=== PATIENT | male | born 1975 | race Caucasian/White ===

== ENCOUNTER 2016-08-27 17:33 | Emergency (ER) | payer OTHER ==
[~2016-08-27] VITALS: Ht 172.7 cm; Wt 113.4 kg
[~2016-08-27 17:33] MED LIST: ZOLP10TA PO
[2016-08-27 18:31] LABS: Basophils # (auto) 0 uL; Basophils % (auto) 0.3 % (0.0-2.0); Eosinophils # (auto) 0.1 uL; Eosinophils % (auto) 0.9 % (0.0-7.0); Hematocrit 43.3 % (41.0-53.0); Hemoglobin 14.5 g/dL (13.5-17.5); Lymphocytes # (auto) 2.3 uL; Lymphocytes % (auto) 29.6 % (10.0-50.0); Mean Corpuscular Hemoglobin 28.4 pg (28.0-32.0); Mean Corpuscular Hgb Conc. 33.4 g/dL (32.0-36.0); Mean Platelet Volume 7.7 fL (7.4-10.4); Monocytes # (auto) 0.5 uL; Monocytes % (auto) 6.3 % (0.0-12.0); Neutrophils # (auto) 4.9 uL; Neutrophils % (auto) 62.9 % (37.0-80.0); Platelet Count (auto) 319 10^3/uL (140-450); Red Cell Distribution Width 13.8 % (11.6-16.0); White Blood Cell 7.8 10^3/uL (4.4-10.8)
[2016-08-27 18:44] LABS: Albumin 3.9 g/dL (3.4-5.0); Anion Gap 9 (5-15); Calcium 8.6 mg/dL (8.5-10.1); Carbon Dioxide 23 mmol/L (21-32); Chloride 106 mmol/L (98-107); Glucose 100 mg/dL (74-106); Magnesium 2.3 mg/dL (1.6-2.6); Sodium 138 mmol/L (136-145)
[2016-08-27 18:48] LABS: Alkaline Phosphatase 72 U/L (45-117); Aspartate Aminotransferase 18 U/L (15-37); BUN/Creatinine Ratio 10.9; Bilirubin, Total 0.4 mg/dL (0.2-1.0); Blood Urea Nitrogen 11 mg/dL (7-18); GFR African American 105 mL/min; GFR Non-African American 87 mL/min; Total Protein 7.7 g/dL (6.4-8.2)
[2016-08-27] MEDS ORDERED: SODIUM CHLORIDE 0.9% 1,000 ML IV ONE (19:25)
[2016-08-27] MEDS ORDERED: MORPHINE SULFATE 4 MG/ML SYRG IV ONE (19:30)
[2016-08-27] MEDS ORDERED: ONDANSETRON HCL 4 MG/2 ML VIAL IV ONE (19:30)
[2016-08-27] MEDS ORDERED: ASPirin 81 mg TAB PO ONE (19:30)
[2016-08-27] MEDS ORDERED: PANTOPRAZOLE SODIUM 40 MG/10 ML VIAL IV ONE (19:45)
[2016-08-27] MEDS ORDERED: cloNIDine HCL 0.1 MG TAB PO ONE (21:00)
[2016-08-27 22:45] VITALS: BP 142/95
== END 2016-08-27 23:05 | disposition short-term general hospital (02) ==
LOC: ER 17:33
DX: R07.2 Precordial pain (principal); I10 Essential (primary) hypertension; Z79.899 Other long term (current) drug therapy; R20.0 Anesthesia of skin; R06.02 Shortness of breath; R11.0 Nausea
CPT/HCPCS: 36415; 71020; 80053; 80307; 83735; 84484; 85025; 85379; 93005; 94761; 96361; 96374; 96375; 99285; C9113; J2270; J2405; J7030

== ENCOUNTER 2021-12-20 18:35 | Inpatient (IN) | payer OTHER, MEDICAID ==
[~2021-12-20] VITALS: Ht 182.9 cm; Wt 116.9 kg
[2021-12-20] MEDS ORDERED: SODIUM CHLORIDE 0.9% 1,000 ML IV ONE ×2 (19:00→20:00)
[2021-12-20] MEDS ORDERED: PANTOPRAZOLE 40 MG/10 ML VIAL INJ IV ONE (19:00)
[2021-12-20] MEDS ORDERED: IOHEXOL 300 MG/ML 100ML BOTTLE IJ ONE (19:17)
[2021-12-20 19:39] LABS: Basophils # (auto) 0.2 10 ^3/uL (0-0.2); Basophils % (auto) 1.4 % (0.0-2.0); Eosinophils # (auto) 0.1 10 ^3/uL (0-0.8); Eosinophils % (auto) 0.9 % (0.0-7.0); Hematocrit 37.3 % (41.0-53.0); Hemoglobin 12.4 g/dL (13.5-17.5); Lymphocytes # (auto) 2.2 10 ^3/uL (0.4-5.4); Lymphocytes % (auto) 20.6 % (10.0-50.0); Mean Corpuscular Hemoglobin 28.4 pg (28.0-32.0); Mean Corpuscular Hgb Conc. 33.2 g/dL (32.0-36.0); Mean Corpuscular Volume 85.8 fL (80.0-100.0); Monocytes # (auto) 0.4 10 ^3/uL (0-1.3); Neutrophils # (auto) 7.8 10 ^3/uL (1.6-8.6); Neutrophils % (auto) 73.1 % (37.0-80.0); Nucleated Red Blood Cells % 0.2 %; Red Blood Cells 4.35 10^6/uL (4.5-5.90); Red Cell Distribution Width 14.2 % (11.8-14.3); White Blood Cell 10.7 10^3/uL (4.4-10.8)
[2021-12-20 19:52] LABS: INR 0.97 (0.9-1.15); Partial Thromboplastin Time 23.2 sec (24.6-33.4)
[2021-12-20 19:54] LABS: Albumin 3.3 g/dL (3.4-5.0); Calcium 8.6 mg/dL (8.5-10.1); Potassium 3.9 mmol/L (3.5-5.1)
[2021-12-20 19:56] LABS: Bilirubin, Total 0.2 mg/dL (0.2-1.0); Total Protein 6.6 g/dL (6.4-8.2)
[2021-12-20 19:59] LABS: Lactic Acid w/Reflex 2.6 mmol/L (0.4-2.0)
[2021-12-20 22:28] LABS: Hematocrit 31.3 % (41.0-53.0); Hemoglobin 10.4 g/dL (13.5-17.5)
[2021-12-20] MEDS: SODIUM CHLORIDE 0.9% 1,000 ML IV ONE ×2 (23:40→23:53)
[2021-12-20 23:51] LABS: Hematocrit 31.3 % (41.0-53.0); Hemoglobin 10.4 g/dL (13.5-17.5)
[2021-12-21] VITALS (32 sets, daily range): BP systolic 81–151; BP diastolic 34–124
[2021-12-21 00:57] LABS: Hematocrit 27.2 % (41.0-53.0); Hemoglobin 9.3 g/dL (13.5-17.5)
[2021-12-21] MEDS ORDERED: SODIUM CHLORIDE 0.9% 1,000 ML IV SCH (02:30)
[2021-12-21] MEDS ORDERED: MORPHINE SULFATE INJ 2 MG/ml SYRG IV PRN (02:30)
[2021-12-21] MEDS ORDERED: ONDANSETRON HCL 4 MG/2 ML VIAL IV PRN (02:30)
[2021-12-21] MEDS ORDERED: NITROGLYCERIN 0.4 MG SL TAB SL PRN (02:30)
[2021-12-21] MEDS: PANTOPRAZOLE 40mg/50ML NS AE 50 ML IV SCH ×5 (03:10→23:00)
[2021-12-21 07:36] LABS: Hematocrit 30.2 % (41.0-53.0)
[2021-12-21 11:40] LABS: Hematocrit 24.9 % (41.0-53.0); Hemoglobin 8.3 g/dL (13.5-17.5)
[2021-12-21 12:03] LABS: Calcium 7.3 mg/dL (8.5-10.1)
[2021-12-21 12:09] LABS: Albumin 2.4 g/dL (3.4-5.0); BUN/Creatinine Ratio 11.9; Bilirubin, Total 0.3 mg/dL (0.2-1.0); Total Protein 4.6 g/dL (6.4-8.2)
[2021-12-21] MEDS ORDERED: NOREPINEPHRINE 8 MG/250ML KIT 250 ML IV ONE (12:21)
[2021-12-21] MEDS: NOREPINEPHRINE 8 MG/250ML KIT 250 ML IV SCH (12:30)
[2021-12-21] MEDS: SODIUM CHLORIDE 0.9% 1,000 ML IV SCH ×3 (12:51→22:00)
[2021-12-21] MEDS ORDERED: LORazepam 2MG/ML-1ML VIAL IV PRN (13:00)
[2021-12-21] MEDS: ONDANSETRON HCL 4 MG/2 ML VIAL IV PRN ×3 (13:25→22:17)
[2021-12-21] MEDS: HYDROmorphone HCL 2 MG/ML VL/or syr IV PRN (13:33)
[2021-12-21 18:30] LABS: Hematocrit 20.7 % (41.0-53.0)
[2021-12-21 18:37] LABS: Hemoglobin 6.9 g/dL (13.5-17.5)
[2021-12-21] MEDS ORDERED: TRANEXAMIC ACID 1,000 MG in SODIUM CHL 0.9% 100 ML IV ONE (19:30)
[2021-12-21] MEDS ORDERED: PROMETHAZINE HCL 25 MG/ML 1ML IV PRN (22:45)
[2021-12-21 23:10] LABS: INR 1.27 (0.9-1.15)
[2021-12-21 23:11] LABS: Alanine Aminotransferase 15 U/L (16-61); Albumin 1.8 g/dL (3.4-5.0); Anion Gap 13 (5-15); Aspartate Aminotransferase 12 U/L (15-37); Blood Urea Nitrogen 15 mg/dL (7-18); Calcium 6.1 mg/dL (8.5-10.1); Carbon Dioxide 14 mmol/L (21-32); Chloride 120 mmol/L (98-107); GFR African American 73 mL/min; GFR Non-African American 60 mL/min; Glucose 213 mg/dL (74-106); Potassium 4.3 mmol/L (3.5-5.1); Sodium 147 mmol/L (136-145)
[2021-12-21 23:13] LABS: Alkaline Phosphatase 20 U/L (45-117); Bilirubin, Total 0.8 mg/dL (0.2-1.0); Total Protein 3.4 g/dL (6.4-8.2)
[2021-12-21 23:31] LABS: Basophils # (auto) 0 10 ^3/uL (0-0.2); Basophils % (auto) 0.3 % (0.0-2.0); Eosinophils # (auto) 0 10 ^3/uL (0-0.8); Hematocrit 19.9 % (41.0-53.0); Lymphocytes # (auto) 2.2 10 ^3/uL (0.4-5.4); Lymphocytes % (auto) 14.6 % (10.0-50.0); Mean Corpuscular Hemoglobin 30.8 pg (28.0-32.0); Mean Corpuscular Hgb Conc. 32.9 g/dL (32.0-36.0); Mean Corpuscular Volume 93.8 fL (80.0-100.0); Monocytes # (auto) 0.9 10 ^3/uL (0-1.3); Monocytes % (auto) 6.2 % (0.0-12.0); Neutrophils # (auto) 11.6 10 ^3/uL (1.6-8.6); Neutrophils % (auto) 78.9 % (37.0-80.0); Nucleated Red Blood Cells % 0.3 %; Red Blood Cells 2.12 10^6/uL (4.5-5.90); Red Cell Distribution Width 15.8 % (11.8-14.3); White Blood Cell 14.7 10^3/uL (4.4-10.8)
[2021-12-21 23:34] LABS: Hemoglobin 6.5 g/dL (13.5-17.5)
[2021-12-22] VITALS (83 sets, daily range): BP systolic 89–137; BP diastolic 40–81
[2021-12-22] MEDS ORDERED: VASOPRESSIN 50 UNITS in D5W 5% 247.5 ML IV SCH (01:45)
[2021-12-22] MEDS ORDERED: VASOPRESSIN 20 UNIT/ML ONE (02:06)
[2021-12-22] MEDS: VASOPRESSIN 50 UNITS in D5W 5% 247.5 ML IV SCH (02:20)
[2021-12-22] MEDS ORDERED: FLUMAZENIL 0.1 MG/ML INJ 10ML MDV IV ONE (02:26)
[2021-12-22] MEDS ORDERED: NALOXONE HCL 0.4 MG/ML VIAL ONE (02:26)
[2021-12-22] MEDS ORDERED: diphenhdrAMINE HCL 50 MG/1 ML VL ONE (02:27)
[2021-12-22] MEDS: fentaNYL CITRATE 100 MCG/2 ML VL ONE ×2 (02:47→02:54)
[2021-12-22] MEDS: MIDAZOLAM HCL 5 MG/ML-1ML VIAL ONE ×3 (02:47→03:22)
[2021-12-22] MEDS ORDERED: EPINEPHrine HCL 1 MG/1 ML AMP ONE (03:00)
[2021-12-22] MEDS ORDERED: EPINEPHrine HCL 1 MG/10 ML SYRG ONE (03:09)
[2021-12-22] MEDS: PANTOPRAZOLE 40mg/50ML NS AE 50 ML IV SCH ×4 (03:54→23:11)
[2021-12-22] MEDS ORDERED: SODIUM CHLORIDE 0.9% 1,000 ML IV SCH (04:30)
[2021-12-22 05:09] LABS: Basophils # (auto) 0.1 10 ^3/uL (0-0.2); Basophils % (auto) 0.5 % (0.0-2.0); Eosinophils # (auto) 0 10 ^3/uL (0-0.8); Hematocrit 25.2 % (41.0-53.0); Hemoglobin 8.5 g/dL (13.5-17.5); Lymphocytes # (auto) 2.2 10 ^3/uL (0.4-5.4); Lymphocytes % (auto) 14.7 % (10.0-50.0); Mean Corpuscular Hemoglobin 30.5 pg (28.0-32.0); Mean Corpuscular Hgb Conc. 33.5 g/dL (32.0-36.0); Mean Corpuscular Volume 90.9 fL (80.0-100.0); Monocytes # (auto) 1.2 10 ^3/uL (0-1.3); Monocytes % (auto) 7.6 % (0.0-12.0); Neutrophils # (auto) 11.6 10 ^3/uL (1.6-8.6); Neutrophils % (auto) 77.2 % (37.0-80.0); Nucleated Red Blood Cells % 0.3 %; Red Blood Cells 2.77 10^6/uL (4.5-5.90); White Blood Cell 15.1 10^3/uL (4.4-10.8)
[2021-12-22 05:37] LABS: BUN/Creatinine Ratio 12.3; Calcium 6.3 mg/dL (8.5-10.1); Potassium 4.7 mmol/L (3.5-5.1)
[2021-12-22 05:40] LABS: Bilirubin, Total 0.3 mg/dL (0.2-1.0); Total Protein 3.8 g/dL (6.4-8.2)
[2021-12-22] MEDS ORDERED: FUROSEMIDE 20 MG/2 ML VIAL IV ONE ×2 (09:30→23:00)
[2021-12-22] MEDS: NOREPINEPHRINE 8 MG/250ML KIT 250 ML IV SCH (12:30)
[2021-12-22 14:21] LABS: Hematocrit 19.9 % (41.0-53.0)
[2021-12-22 14:33] LABS: Hemoglobin 6.6 g/dL (13.5-17.5)
[2021-12-22] MEDS: SODIUM CHLORIDE 0.9% 1,000 ML IV SCH (16:00)
[2021-12-22 18:22] LABS: Urine Bacteria NONE SEEN /hpf (None Seen); Urine Blood Negative /uL (Negative); Urine Mucus FEW (None Seen); Urine Specific Gravity 1.017 (1.001-1.035); Urine WBC 1 /hpf (0 - 3)
[2021-12-22 20:23] LABS: Hematocrit 20.7 % (41.0-53.0)
[2021-12-22 20:26] LABS: Hemoglobin 6.8 g/dL (13.5-17.5)
[2021-12-22] MEDS: HYDROmorphone HCL 2 MG/ML VL/or syr IV PRN (23:11)
[2021-12-23] VITALS (29 sets, daily range): BP systolic 92–164; BP diastolic 52–80
[2021-12-23] MEDS: PANTOPRAZOLE 40mg/50ML NS AE 50 ML IV SCH ×3 (02:20→07:59)
[2021-12-23] MEDS: VASOPRESSIN 50 UNITS in D5W 5% 247.5 ML IV SCH (02:45)
[2021-12-23 05:47] LABS: Hematocrit 22.3 % (41.0-53.0)
[2021-12-23] MEDS: SODIUM CHLORIDE 0.9% 1,000 ML IV SCH ×2 (06:11→21:40)
[2021-12-23 06:19] LABS: Calcium 6.9 mg/dL (8.5-10.1); Potassium 3.3 mmol/L (3.5-5.1)
[2021-12-23] MEDS: NOREPINEPHRINE 8 MG/250ML KIT 250 ML IV SCH (08:40)
[2021-12-23] MEDS ORDERED: POTASSIUM CHL 20 Meq TABLET PO ONE ×2 (11:15→12:15)
[2021-12-23] MEDS: ACETAMINOPHEN 500 MG TAB PO PRN ×2 (11:16→18:01)
[2021-12-23] MEDS ORDERED: CALCIUM GLUC 1,000mg/50ml-NS 50 ML IV ONE (12:30)
[2021-12-23] MEDS ORDERED: PANTOPRAZOLE 40mg/50ML NS AE 50 ML IV ONE (12:50)
[2021-12-23 14:07] LABS: Hematocrit 23.3 % (41.0-53.0)
[2021-12-23] MEDS: PANTOPRAZOLE 40 MG/10 ML VIAL INJ IV SCH (21:41)
[2021-12-23] MEDS: HYDROmorphone HCL 2 MG/ML VL/or syr IV PRN (21:41)
[2021-12-23 22:14] LABS: Hematocrit 23.1 % (41.0-53.0)
[2021-12-24] VITALS (18 sets, daily range): BP systolic 109–151; BP diastolic 50–83
[2021-12-24] MEDS: VASOPRESSIN 50 UNITS in D5W 5% 247.5 ML IV SCH (02:45)
[2021-12-24 05:50] LABS: Basophils # (auto) 0 10 ^3/uL (0-0.2); Eosinophils # (auto) 0.2 10 ^3/uL (0-0.8); Monocytes # (auto) 0.5 10 ^3/uL (0-1.3)
[2021-12-24 05:55] LABS: Basophils % (auto) 0.4 % (0.0-2.0); Eosinophils % (auto) 3.2 % (0.0-7.0); Hematocrit 22.1 % (41.0-53.0); Hemoglobin 7.6 g/dL (13.5-17.5); Lymphocytes # (auto) 1.4 10 ^3/uL (0.4-5.4); Lymphocytes % (auto) 22.1 % (10.0-50.0); Mean Corpuscular Hemoglobin 30.4 pg (28.0-32.0); Mean Corpuscular Hgb Conc. 34.6 g/dL (32.0-36.0); Monocytes % (auto) 7.7 % (0.0-12.0); Neutrophils # (auto) 4.4 10 ^3/uL (1.6-8.6); Neutrophils % (auto) 66.6 % (37.0-80.0); Nucleated Red Blood Cells % 0.3 %; Red Blood Cells 2.51 10^6/uL (4.5-5.90); Red Cell Distribution Width 14.3 % (11.8-14.3); White Blood Cell 6.5 10^3/uL (4.4-10.8)
[2021-12-24 05:58] LABS: BUN/Creatinine Ratio 6.7; Calcium 7.4 mg/dL (8.5-10.1); Potassium 3.4 mmol/L (3.5-5.1)
[2021-12-24] MEDS: NOREPINEPHRINE 8 MG/250ML KIT 250 ML IV SCH (07:54)
[2021-12-24] MEDS: PANTOPRAZOLE 40 MG/10 ML VIAL INJ IV SCH ×2 (08:12→20:59)
[2021-12-24] MEDS: ACETAMINOPHEN 500 MG TAB PO PRN ×2 (08:12→21:00)
[2021-12-24] MEDS: SODIUM CHLORIDE 0.9% 1,000 ML IV SCH ×2 (08:12→14:22)
[2021-12-24 11:12] LABS: Hematocrit 23.5 % (41.0-53.0)
[2021-12-24] MEDS ORDERED: POTASSIUM CHL 20 Meq TABLET PO ONE (14:00)
[2021-12-24] MEDS ORDERED: FUROSEMIDE 20 MG/2 ML VIAL IV ONE (14:00)
[2021-12-24] MEDS: HYDROcodone-ACET 5/325MG TAB PO PRN (14:21)
[2021-12-24] MEDS: HYDROmorphone HCL 2 MG/ML VL/or syr IV PRN (17:38)
[2021-12-24] MEDS: TEMAZEPAM 15 MG CAP PO PRN (20:59)
[2021-12-25] VITALS (12 sets, daily range): BP systolic 82–127; BP diastolic 40–82
[2021-12-25] MEDS: HYDROcodone-ACET 5/325MG TAB PO PRN ×2 (02:31→13:02)
[2021-12-25] MEDS: VASOPRESSIN 50 UNITS in D5W 5% 247.5 ML IV SCH (02:45)
[2021-12-25] MEDS: SODIUM CHLORIDE 0.9% 1,000 ML IV SCH ×2 (06:16→23:20)
[2021-12-25 06:43] LABS: Basophils # (auto) 0 10 ^3/uL (0-0.2); Basophils % (auto) 0.6 % (0.0-2.0); Eosinophils # (auto) 0.2 10 ^3/uL (0-0.8); Eosinophils % (auto) 4.4 % (0.0-7.0); Hematocrit 25.4 % (41.0-53.0); Hemoglobin 8.5 g/dL (13.5-17.5); Lymphocytes # (auto) 1.4 10 ^3/uL (0.4-5.4); Lymphocytes % (auto) 29.9 % (10.0-50.0); Mean Corpuscular Hemoglobin 30.1 pg (28.0-32.0); Mean Corpuscular Hgb Conc. 33.6 g/dL (32.0-36.0); Mean Corpuscular Volume 89.6 fL (80.0-100.0); Monocytes # (auto) 0.4 10 ^3/uL (0-1.3); Monocytes % (auto) 9.1 % (0.0-12.0); Neutrophils # (auto) 2.5 10 ^3/uL (1.6-8.6); Nucleated Red Blood Cells % 0.3 %; Red Blood Cells 2.83 10^6/uL (4.5-5.90); Red Cell Distribution Width 14.5 % (11.8-14.3); White Blood Cell 4.5 10^3/uL (4.4-10.8)
[2021-12-25 07:11] LABS: Calcium 7.9 mg/dL (8.5-10.1); Potassium 3.6 mmol/L (3.5-5.1)
[2021-12-25 07:13] LABS: BUN/Creatinine Ratio 4.8
[2021-12-25] MEDS: PANTOPRAZOLE 40 MG/10 ML VIAL INJ IV SCH ×2 (09:42→21:10)
[2021-12-25] MEDS: ACETAMINOPHEN 500 MG TAB PO PRN ×3 (09:43→21:10)
[2021-12-25] MEDS: NOREPINEPHRINE 8 MG/250ML KIT 250 ML IV SCH (12:30)
[2021-12-25 16:34] LABS: Hematocrit 26.6 % (41.0-53.0)
[2021-12-25] MEDS: TEMAZEPAM 15 MG CAP PO PRN (21:10)
[2021-12-26] VITALS (12 sets, daily range): BP systolic 99–124; BP diastolic 61–86
[2021-12-26] MEDS: HYDROmorphone HCL 2 MG/ML VL/or syr IV PRN (01:51)
[2021-12-26] MEDS: VASOPRESSIN 50 UNITS in D5W 5% 247.5 ML IV SCH (02:45)
[2021-12-26 03:45] LABS: Basophils # (auto) 0 10 ^3/uL (0-0.2); Basophils % (auto) 0.9 % (0.0-2.0); Eosinophils # (auto) 0.2 10 ^3/uL (0-0.8); Eosinophils % (auto) 4.7 % (0.0-7.0); Hematocrit 24.8 % (41.0-53.0); Hemoglobin 8.7 g/dL (13.5-17.5); Lymphocytes # (auto) 1.3 10 ^3/uL (0.4-5.4); Lymphocytes % (auto) 31.3 % (10.0-50.0); Mean Corpuscular Hemoglobin 30.9 pg (28.0-32.0); Mean Corpuscular Hgb Conc. 35.1 g/dL (32.0-36.0); Mean Corpuscular Volume 87.8 fL (80.0-100.0); Monocytes # (auto) 0.3 10 ^3/uL (0-1.3); Monocytes % (auto) 8.2 % (0.0-12.0); Neutrophils # (auto) 2.3 10 ^3/uL (1.6-8.6); Neutrophils % (auto) 54.9 % (37.0-80.0); Nucleated Red Blood Cells % 0.5 %; Red Blood Cells 2.82 10^6/uL (4.5-5.90); Red Cell Distribution Width 14.7 % (11.8-14.3); White Blood Cell 4.2 10^3/uL (4.4-10.8)
[2021-12-26 04:01] LABS: INR 0.93 (0.9-1.15)
[2021-12-26] MEDS: HYDROcodone-ACET 5/325MG TAB PO PRN ×2 (05:43→21:53)
[2021-12-26] MEDS: PANTOPRAZOLE 40 MG/10 ML VIAL INJ IV SCH ×2 (10:46→21:53)
[2021-12-26] MEDS: NOREPINEPHRINE 8 MG/250ML KIT 250 ML IV SCH (12:30)
[2021-12-26] MEDS: SODIUM CHLORIDE 0.9% 1,000 ML IV SCH ×2 (16:00→21:15)
[2021-12-26] MEDS ORDERED: LORazepam 2MG/ML-1ML VIAL IV PRN (21:15)
[2021-12-26] MEDS: TEMAZEPAM 15 MG CAP PO PRN (21:53)
[2021-12-26] MEDS: METOCLOPRAMIDE HCL 10 MG TAB PO SCH (21:54)
[2021-12-27] VITALS (13 sets, daily range): BP systolic 102–126; BP diastolic 60–85
[2021-12-27 03:56] LABS: Basophils # (auto) 0 10 ^3/uL (0-0.2); Basophils % (auto) 0.7 % (0.0-2.0); Eosinophils # (auto) 0.2 10 ^3/uL (0-0.8); Eosinophils % (auto) 3.6 % (0.0-7.0); Hematocrit 25.7 % (41.0-53.0); Hemoglobin 8.9 g/dL (13.5-17.5); Lymphocytes # (auto) 1.5 10 ^3/uL (0.4-5.4); Lymphocytes % (auto) 33.3 % (10.0-50.0); Mean Corpuscular Hemoglobin 30.9 pg (28.0-32.0); Mean Corpuscular Hgb Conc. 34.8 g/dL (32.0-36.0); Mean Corpuscular Volume 88.7 fL (80.0-100.0); Monocytes # (auto) 0.4 10 ^3/uL (0-1.3); Monocytes % (auto) 8.7 % (0.0-12.0); Neutrophils # (auto) 2.5 10 ^3/uL (1.6-8.6); Neutrophils % (auto) 53.7 % (37.0-80.0); Nucleated Red Blood Cells % 0.3 %; White Blood Cell 4.6 10^3/uL (4.4-10.8)
[2021-12-27 04:16] LABS: BUN/Creatinine Ratio 7.3; Calcium 8.1 mg/dL (8.5-10.1); Potassium 3.5 mmol/L (3.5-5.1)
[2021-12-27] MEDS: METOCLOPRAMIDE HCL 10 MG TAB PO SCH ×3 (06:02→21:05)
[2021-12-27] MEDS: SODIUM CHLORIDE 0.9% 1,000 ML IV SCH ×2 (07:15→17:54)
[2021-12-27] MEDS: PANTOPRAZOLE 40 MG/10 ML VIAL INJ IV SCH (10:22)
[2021-12-27] MEDS: DexAMETHasone INJECTION 10 MG in D5W 5% 50 ML IV SCH (10:22)
[2021-12-27] MEDS: PANTOPRAZOLE 40 MG TAB PO SCH (21:03)
[2021-12-27] MEDS: TEMAZEPAM 15 MG CAP PO PRN (21:05)
[2021-12-28 01:20] VITALS: BP 107/67
[2021-12-28 05:22] LABS: Basophils # (auto) 0 10 ^3/uL (0-0.2); Basophils % (auto) 0.6 % (0.0-2.0); Eosinophils # (auto) 0 10 ^3/uL (0-0.8); Eosinophils % (auto) 0.5 % (0.0-7.0); Hematocrit 29.1 % (41.0-53.0); Hemoglobin 9.7 g/dL (13.5-17.5); Lymphocytes # (auto) 1.7 10 ^3/uL (0.4-5.4); Lymphocytes % (auto) 24.8 % (10.0-50.0); Mean Corpuscular Hemoglobin 29.5 pg (28.0-32.0); Mean Corpuscular Hgb Conc. 33.3 g/dL (32.0-36.0); Mean Corpuscular Volume 88.6 fL (80.0-100.0); Monocytes # (auto) 0.6 10 ^3/uL (0-1.3); Monocytes % (auto) 8.4 % (0.0-12.0); Neutrophils # (auto) 4.6 10 ^3/uL (1.6-8.6); Neutrophils % (auto) 65.7 % (37.0-80.0); Nucleated Red Blood Cells % 0.1 %; Red Blood Cells 3.28 10^6/uL (4.5-5.90); Red Cell Distribution Width 14.9 % (11.8-14.3); White Blood Cell 6.9 10^3/uL (4.4-10.8)
[2021-12-28 05:44] LABS: BUN/Creatinine Ratio 10.1; Calcium 6.1 mg/dL (8.5-10.1); Potassium 3.8 mmol/L (3.5-5.1)
[2021-12-28] MEDS: METOCLOPRAMIDE HCL 10 MG TAB PO SCH (06:00)
[2021-12-28 07:18] VITALS: BP 131/78
[2021-12-28 08:00] VITALS: BP 131/78
[2021-12-28] MEDS: PANTOPRAZOLE 40 MG TAB PO SCH (10:00)
[2021-12-28] MEDS: DexAMETHasone INJECTION 10 MG in D5W 5% 50 ML IV SCH (10:01)
[2021-12-28 11:00] VITALS: BP 125/77
[2021-12-28] MEDS ORDERED: FERR1TAB36 PO (11:22)
[2021-12-28] MEDS ORDERED: PANT40TA2 PO (11:22)
[2021-12-28] MEDS ORDERED: CALCIUM GLUC 1,000mg/50ml-NS 50 ML IV ONE (11:30)
[2021-12-28 13:12] VITALS: BP 125/77
[2021-12-28 14:45] VITALS: BP 114/63
== END 2021-12-28 14:50 | disposition home or self-care (01) | DRG 377 ==
LOC: EDBD 18:35 → ER 18:35 → TELE 12-21 02:27 → ICU WEST 12-21 21:44 → DOU IN ICU 12-27 15:35
PROVIDERS: ADMIT Nurse Practitioner; ATTEND Internal Medicine
PROC: 30233N1 Transfusion of Nonautologous Red Blood Cells into Peripheral Vein, Percutaneous Approach (ICD-10-PCS; principal; 2021-12-21)
PROC: 05H933Z Insertion of Infusion Device into Right Brachial Vein, Percutaneous Approach (ICD-10-PCS; 2021-12-21)
PROC: B54MZZA Ultrasonography of Right Upper Extremity Veins, Guidance (ICD-10-PCS; 2021-12-21)
PROC: 30233K1 Transfusion of Nonautologous Frozen Plasma into Peripheral Vein, Percutaneous Approach (ICD-10-PCS; 2021-12-21)
PROC: 0W3P8ZZ Control Bleeding in Gastrointestinal Tract, Via Natural or Artificial Opening Endoscopic (ICD-10-PCS; 2021-12-22)
PROC: 0DBN8ZZ Excision of Sigmoid Colon, Via Natural or Artificial Opening Endoscopic (ICD-10-PCS; 2021-12-22)
PROC: 0DBL8ZZ Excision of Transverse Colon, Via Natural or Artificial Opening Endoscopic (ICD-10-PCS; 2021-12-22)
DX: K92.2 Gastrointestinal hemorrhage, unspecified (principal); I50.31 Acute diastolic (congestive) heart failure; D62 Acute posthemorrhagic anemia; R65.10 Systemic inflammatory response syndrome (SIRS) of non-infectious origin without acute organ dysfunction; E87.2 Acidosis; K63.3 Ulcer of intestine; I95.9 Hypotension, unspecified; I11.0 Hypertensive heart disease with heart failure; Z20.822 Contact with and (suspected) exposure to COVID-19; S09.90XA Unspecified injury of head, initial encounter; W18.11XA Fall from or off toilet without subsequent striking against object, initial encounter; E83.51 Hypocalcemia; E66.9 Obesity, unspecified; E78.5 Hyperlipidemia, unspecified; F17.200 Nicotine dependence, unspecified, uncomplicated; G43.B0 Ophthalmoplegic migraine, not intractable; K63.5 Polyp of colon; Z82.49 Family history of ischemic heart disease and other diseases of the circulatory system; Z79.899 Other long term (current) drug therapy; Z68.37 Body mass index [BMI] 37.0-37.9, adult; Y93.89 Activity, other specified; Y92.89 Other specified places as the place of occurrence of the external cause; Y99.8 Other external cause status
CPT/HCPCS: 36415; 45378; 45380; 70450; 70551; 71045; 71101; 74177; 80048; 80053; 81001; 82270; 83605; 83690; 83880; 84484; 85014; 85018; 85025; 85379; 85610; 85652; 85730; 86850; 86900; 86901; 86920; 87081; 93005; 93306; 96361; 96365; 96367; 96375; 99291; C9113; G0378; J0171; J1100; J2250; J2405; J7060